=== PATIENT | female | born 1995 | race Caucasian/White ===

== ENCOUNTER 2022-04-29 17:35 | Inpatient (IN) | payer OTHER ==
[~2022-04-29] VITALS: Ht 170.2 cm; Wt 68.0 kg
[2022-04-29] MEDS ORDERED: PRENATAL TABLE1 EAC1 (18:06)
[2022-04-29] MEDS ORDERED: FOLIC ACID1 MG (18:07)
== END 2022-05-02 13:37 | disposition home or self-care (01) | DRG 833 ==
LOC: OBS/DEL 17:35 → LDR 04-30 08:36
PROVIDERS: ADMIT Obstetrics & Gynecology; ATTEND Obstetrics & Gynecology
PROC: 4A1HXCZ Monitoring of Products of Conception, Cardiac Rate, External Approach (ICD-10-PCS; principal; 2022-04-30)
PROC: BY4CZZZ Ultrasonography of Second Trimester, Single Fetus (ICD-10-PCS; 2022-04-30)
PROC: BU4CZZZ Ultrasonography of Uterus and Ovaries (ICD-10-PCS; 2022-04-30)
DX: O60.02 Preterm labor without delivery, second trimester (principal); O26.842 Uterine size-date discrepancy, second trimester; O34.12 Maternal care for benign tumor of corpus uteri, second trimester; Z3A.26 26 weeks gestation of pregnancy; Z20.822 Contact with and (suspected) exposure to COVID-19

== ENCOUNTER 2022-07-20 14:45 | Inpatient (IN) | payer OTHER ==
[~2022-07-20] VITALS: Ht 167.6 cm; Wt 72.6 kg
[~2022-07-20 14:45] MED LIST: FOLIC ACID1 MG; PRENATAL TABLE1 EAC1
== END 2022-07-29 14:11 | disposition home or self-care (01) | DRG 807 ==
LOC: LDR 07-27 08:24 → OB/GYN 07-27 08:24 → LDR 07-27 14:45 → OB/GYN 07-29 14:11
PROVIDERS: ADMIT Obstetrics & Gynecology; ATTEND Obstetrics & Gynecology
PROC: 10E0XZZ Delivery of Products of Conception, External Approach (ICD-10-PCS; principal; 2022-07-27)
PROC: 4A1HXCZ Monitoring of Products of Conception, Cardiac Rate, External Approach (ICD-10-PCS; 2022-07-27)
DX: O80 Encounter for full-term uncomplicated delivery (principal); Z37.0 Single live birth; Z3A.39 39 weeks gestation of pregnancy; Z20.822 Contact with and (suspected) exposure to COVID-19